=== PATIENT | female | born 1955 | race Caucasian/White ===

== ENCOUNTER 2018-12-01 11:46 | Outpatient (CLI) | payer OTHER ==
[~2018-12-01 11:46] MED LIST: Iopamidol 370 76% 100 ML VIAL ONE
--- NOTE | 2018-12-01 16:14 | CT ---
CT ABDOMEN AND PELVIS WITH CONTRAST: Date: 12/01/18 COMPARISON: 08/11/15. HISTORY: Abdominal pain. Last BM 3 days ago. History of diverticulitis. TECHNIQUE: Multiple contiguous axial images were obtained in a CT of the abdomen and pelvis with contrast. PO co ntrast was administered. Coronal reformats were performed. FINDINGS: There are stable hypodensities in the right lobe of the liver measuring up to 3.4 cm in size which re present cysts. The gallbladder, kidneys, adrenal glands, spleen, and pancreas are unremarkable. No fr ee air, free fluid, or stranding changes are seen in the abdomen or pelvis. There is scattered diverticula in the colon. The small bowel and appendix are unremarkable. No abdomi nal or pelvic lymphadenopathy are seen. Atherosclerotic calcifications are seen in the aorta. Degenerative changes are seen in the spine. The visualized inferior thorax and abdominal wall soft ti ssues are unremarkable. IMPRESSION: 1. Hepatic cysts. 2. Diverticulosis without evidence of acute diverticulitis. POS: ÁLVARO
== END 2018-12-01 11:47 | disposition home or self-care (01) ==
LOC: MADLABBHPM 11:46
PROVIDERS: ATTEND Family Medicine
DX: R10.84 Generalized abdominal pain (principal); K57.30 Diverticulosis of large intestine without perforation or abscess without bleeding; K76.89 Other specified diseases of liver
CPT/HCPCS: 36415; 74177; 82565; Q9967

== ENCOUNTER 2019-10-01 15:23 | Outpatient (CLI) | payer BC ==
[2019-10-01 16:07] LABS: #Basophils 0.1 thou/uL (0.0-0.2); #Eosinphils 0.1 thou/uL (0.0-0.7); #Lymphocytes 2.7 thou/uL (1.20-3.40); #Monocytes 0.4 thou/uL (0.11-0.59); #Neutrophils 4.2 thou/uL (1.40-6.50); %Eosinophils 1.7 % (0.0-10.0); %Monocytes 5.7 % (0.0-10.0); %Neutrophils 55.6 % (42.0-75.0); Hemoglobin 12.9 g/dL (12.0-16.0); Mean Corpuscular HGB CONC 31.5 g/dL (32.0-36.0); Mean Corpuscular Hemoglobin 30.3 pg (27.0-31.0); Mean Corpuscular Volume 96.1 fL (78.0-98.0); Mean Platelet Volume 8.1 fL (7.4-10.4); Platelet Count 369 thou/uL (130-400); RBC Distribution Width 11.6 % (11.5-14.5); Red Blood Cell (RBC) Count 4.24 mill/uL (4.20-5.40); White Blood Cell (WBC) Count 7.5 thou/uL (4.8-10.8)
[2019-10-01 16:28] LABS: ALT (SGPT) 17 U/L (8-55); AST (SGOT) 17 U/L (5-34); Albumin 4.7 g/dL (3.4-4.8); Alkaline Phosphatase 58 U/L (40-110); Anion Gap 18 mmol/L (10-20); BUN (Urea Nitrogen) 9 mg/dL (9.8-20.1); Bilirubin, Total 0.2 mg/dL (0.2-1.2); CRP (Inflammatory) 2.05 mg/dL (= or < 0.5); Calc. Creatinine Clearance 0 mL/min (70-130); Calcium 10.5 mg/dL (7.8-10.44); Carbon Dioxide 25 mmol/L (23-31); Chloride 103 mmol/L (98-107); Estimated GFR-MDRD 77; Glucose 95 mg/dL (80-115); Potassium 4.6 mmol/L (3.5-5.1); Protein, Total 7.7 g/dL (6.0-8.3); Sodium 141 mmol/L (136-145)
--- NOTE | 2019-10-01 17:57 | RAD ---
TWO VIEW ABDOMEN: Supine and upright views of the abdomen. INDICATION: Abdominal pain. FINDINGS: Bowel gas pattern unremarkable. Scattered stool and gas seen throughout the colon. Small bowel gas pattern is normal. Psoas margins are sharp. No soft tissue mass affect seen. No evidence of free i ntraperitoneal air. No abnormal calcification. IMPRESSION: Unremarkable bowel gas pattern. POS: [facility]W
== END 2019-10-01 15:24 | disposition home or self-care (01) ==
LOC: MADRAD 15:23
PROVIDERS: ATTEND Family Medicine
DX: K57.90 Diverticulosis of intestine, part unspecified, without perforation or abscess without bleeding (principal)
CPT/HCPCS: 36415; 74019; 80053; 85025; 86140